=== PATIENT | male | born 1935 | race Caucasian/White ===

== ENCOUNTER 2017-10-04 16:31 | Inpatient (IN) | payer OTHER ==
[~2017-10-04] VITALS: Ht 152.4 cm; Wt 95.3 kg
[2017-10-04] VITALS (9 sets, daily range): BP systolic 127–150; BP diastolic 69–115
--- NOTE | 2017-10-04 16:35 | NUR ---
JOSSUE 7 FROM HOME FOR ACUTE RESPIRATORY DISTRESS, FEVER. A/OX 2, BREATHING LABORED, SHORT OF BREATH, ON 2ND BREATHING TREATMENT ON ROUTE. PATIENT WARM TO TOUCH, DIAPHORETIC. SAFETY AND COMFORT MEASURES IN PLACE. MD AT BEDSIDE FOR EVAL.
--- NOTE | 2017-10-04 16:40 | NUR ---
L AC G 18 IV STARTED BY RN, BLOOD TESTS DRAWN AND SEND TO LAB. SET OF BLOOD CULTURES ALSO DRAWN AND SEND TO LAB PRIOR TO INIATING ATB THERAPY.
[2017-10-04 16:51] LABS: BASOPHILS % (AUTO) 1.7 % (0.0-2.0); EOSINOPHILS # (AUTO) 0.1 /CMM (0.0-0.7); EOSINOPHILS % (AUTO) 2.7 % (0.0-6.0); HEMATOCRIT 41 % (39-51); HEMOGLOBIN 13.6 g/dL (13.5-17.5); LYMPHOCYTES # (AUTO) 0.5 /CMM (0.8-4.8); LYMPHOCYTES % (AUTO) 15.7 % (20.0-44.0); MEAN CORPUSCULAR HEMOGLOBIN 32 PG (26.0-33.0); MEAN CORPUSCULAR HGB CONC 33 g/dl (31.0-36.0); MEAN CORPUSCULAR VOLUME 96 fL (80-96); MONOCYTES % (AUTO) 0.3 % (2.0-12.0); NEUTROPHILS # (AUTO) 2.3 /CMM (1.8-8.9); NEUTROPHILS % (AUTO) 79.6 % (43.0-81.0); PLATELET COUNT (AUTO) 119 /CMM (150-450); RDW COEFFICIENT OF VARIATION 12.7 (11.5-15.0); RED BLOOD CELL COUNT(AUTO) 4.25 MIL/uL (4.5-6.0); WHITE BLOOD COUNT (AUTO) 2.9 K/uL (4.3-11.0)
[2017-10-04] MEDS ORDERED: ACETAMINOPHEN 650 MG/SUPP.RECT RC ONE ×2 (17:00→17:01)
--- NOTE | 2017-10-04 17:00 | NUR ---
BIPAP SETTINGS: 15/5-14-40%
[2017-10-04 17:05] LABS: CALCIUM, SERUM 8.9 mg/dL (8.5-10.1); CARBON DIOXIDE 26 mmol/L (21-32); CHLORIDE 104 mmol/L (98-107); CREATININE 1.7 mg/dL (0.6-1.3); GLUCOSE 93 mg/dL (74-106); POTASSIUM 4.1 mmol/L (3.5-5.1); SODIUM SERUM 138 mmol/L (136-145); UREA NITROGEN, BLOOD 24 mg/dL (7-18)
[2017-10-04 17:11] LABS: TROPONIN I < 0.017 ng/mL (0.00-0.056)
[2017-10-04] MEDS ORDERED: AMLO2.5T PO (17:12)
[2017-10-04] MEDS ORDERED: CARV25TA2 PO (17:12)
[2017-10-04] MEDS ORDERED: ATOR40TA PO (17:12)
[2017-10-04] MEDS ORDERED: ISOS60TA4 PO (17:12)
[2017-10-04] MEDS ORDERED: FLUT16SP16 NS (17:12)
[2017-10-04] MEDS ORDERED: ASPI-991 PO (17:12)
[2017-10-04] MEDS ORDERED: DOCU250C75 PO (17:12)
[2017-10-04] MEDS ORDERED: OMEG1CAP40 PO (17:12)
[2017-10-04] MEDS ORDERED: TAMS-12 PO (17:12)
[2017-10-04] MEDS ORDERED: RANI300C PO (17:12)
[2017-10-04] MEDS ORDERED: HYDR-4076 PO (17:12)
[2017-10-04] MEDS ORDERED: TERA1CAP4 PO ×2 (17:12)
[2017-10-04 17:13] LABS: INR 1.02 (0.87-1.13); PROTHROMBIN TIME 10.6 SECS (9.5-12.7)
[2017-10-04] MEDS ORDERED: LISI2.5T2 PO (17:13)
[2017-10-04 17:18] LABS: ALANINE AMINOTRANSFERASE 20 U/L (12-78); ALKALINE PHOSPHATASE 48 U/L (46-116); ASPARTATE AMINOTRANSFERASE 25 U/L (15-37); B-TYPE NATRIURETIC PEPTIDE 178 PG/ML (0-125); BILIRUBIN,DIRECT 0.2 mg/dL (0.0-0.2); BILIRUBIN,TOTAL 0.9 mg/dL (0.2-1.0); TOTAL PROTEIN, SERUM 7.2 g/dL (6.4-8.2)
[2017-10-04] MEDS ORDERED: IV NS 0.9% 1,000 ML IV ONE ×2 (17:30→18:30)
[2017-10-04] MEDS ORDERED: PIPERACILLIN /TAZOBACTAM 3.375 G in IV D5W 50 ML IV ONE (18:00)
[2017-10-04 18:05] LABS: BILIRUBIN,URINE SMALL (NEGATIVE); BLOOD, URINE Large Ery/uL (NEGATIVE); KETONES,URINE Negative (NEGATIVE); LEUKOCYTE ESTERASE ,URINE Negative (NEGATIVE); NITRITE, URINE Negative (NEGATIVE); PH,URINE 5.5 (5.0-8.0); PROTEIN,URINE 30 mg/dl (NEGATIVE); UGLUCOSE Negative (NEGATIVE); UROBILINOGEN,URINE 0.2 EU/dL (0.2)
[2017-10-04 18:10] LABS: APPEARANCE,URINE Slightly Cloudy (CLEAR); COLOR,URINE RED (YELLOW)
--- NOTE | 2017-10-04 18:24 | NUR ---
BED-ICU 256
[2017-10-04] MEDS ORDERED: VANCOMYCIN 1 GM in IV D5W 250 ML IV SCH (18:30)
[2017-10-04] MEDS ORDERED: MAG HYDROX/AL HYDROX/SIMETH 30 ML UDC PO PRN (18:30)
[2017-10-04] MEDS ORDERED: ZOLPIDEM TARTRATE 5 MG TABLET PO PRN (18:30)
[2017-10-04] MEDS ORDERED: MAGNESIUM HYDROXIDE 30 ML UDC PO PRN (18:30)
[2017-10-04] MEDS ORDERED: Z GUARD REMEDY 2 OZ OINT TP PRN (18:30)
[2017-10-04] MEDS ORDERED: HYDROCODONE/APAP 5/325MG 1 EACH TABLET PO PRN (18:30)
[2017-10-04 18:53] LABS: BACTERIA,URINE Moderate /HPF (None Seen); RBC,URINE 21-50 /HPF (0-2)
[2017-10-04 18:54] LABS: SQUAMOUS EPITHELIAL CELL,UR Few /HPF (None Seen)
--- NOTE | 2017-10-04 18:57 | NUR ---
REPORT GIVEN TO GIANNI MUNIZ FOR ADMISSION.
[2017-10-04] MEDS ORDERED: FEE PK DOSING 1 MIN EA MC ONE (19:14)
--- NOTE | 2017-10-04 19:15 | NUR ---
PATIENT TRANSPORTED TO ICU 256 VIA ACLS PROTOCOL. RNGIANNI TO PROVIDE HIRAM.
[2017-10-04] MEDS ORDERED: HYDROMORPHONE 1 MG/1 ML DISP.SYRIN IV PRN (19:30)
--- NOTE | 2017-10-04 19:30 | NUR ---
Received patient from ED via ACLS protocol per blanquita.Admitted for SEPSIS/PROSTATITIS. 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 SOB on exertion noted.Breath sounds clear on auscultation.HOB elevated.Initial admission assessment done.Patient made aware of plan of care.Verbalized understanding.Denies pain. Call light at BS within easy reach.
[2017-10-04] MEDS: IV NS 0.9% 1,000 ML IV PRN (19:42)
[2017-10-04] MEDS: ENOXAPARIN SODIUM 30 MG/0.3 ML DISP.SYRIN SQ SCH (20:18)
[2017-10-04] MEDS: VANCOMYCIN 1 GM in IV D5W 250 ML IV SCH (20:40)
[2017-10-04] MEDS ORDERED: PIPERACILLIN /TAZOBACTAM 4.5 G in IV D5W 50 ML IV SCH (21:00)
[2017-10-04] MEDS: ATORVASTATIN 40 MG TABLET PO SCH (22:03)
--- NOTE | 2017-10-04 22:30 | NUR ---
Specimen for Rapid Influenza antigen collected and given to Final Rail Cutter.
[2017-10-04] MEDS: ZOSYN IVPB 2.25 G in IV D5W 50ml IV SCH (23:30)
[2017-10-05] VITALS (25 sets, daily range): BP systolic 110–158; BP diastolic 52–78
--- NOTE | 2017-10-05 | NUR ---
Patient resting.VS stable.Denies pain.Turned and repositioned self in bed.
[2017-10-05] MEDS: HYDROCODONE/APAP 10/325MG 1 EA TABLET PO PRN ×2 (03:54→14:42)
--- NOTE | 2017-10-05 03:55 | NUR ---
Patient complaints of body ache.PRN pain medicine [place] administered.Will reassess pain status.
[2017-10-05] MEDS: ONDANSETRON HCL/PF 4 MG/2 ML VIAL IVP PRN (04:37)
--- NOTE | 2017-10-05 04:40 | NUR ---
Patient vomited small amount liquid emesis.Zofran administered as PRN.
[2017-10-05 04:51] LABS: EOSINOPHILS % (AUTO) 0.1 % (0.0-6.0); HEMATOCRIT 40 % (39-51); HEMOGLOBIN 13.6 g/dL (13.5-17.5); LYMPHOCYTES # (AUTO) 0.3 /CMM (0.8-4.8); LYMPHOCYTES % (AUTO) 2.4 % (20.0-44.0); MEAN CORPUSCULAR HEMOGLOBIN 33 PG (26.0-33.0); MEAN CORPUSCULAR HGB CONC 34 g/dl (31.0-36.0); MEAN CORPUSCULAR VOLUME 97 fL (80-96); MONOCYTES # (AUTO) 0.2 /CMM (0.1-1.30); MONOCYTES % (AUTO) 1.9 % (2.0-12.0); NEUTROPHILS # (AUTO) 10.2 /CMM (1.8-8.9); NEUTROPHILS % (AUTO) 95.6 % (43.0-81.0); PLATELET COUNT (AUTO) 88 /CMM (150-450); RDW COEFFICIENT OF VARIATION 13.2 (11.5-15.0); RED BLOOD CELL COUNT(AUTO) 4.15 MIL/uL (4.5-6.0); WHITE BLOOD COUNT (AUTO) 10.7 K/uL (4.3-11.0)
[2017-10-05 05:13] LABS: B-TYPE NATRIURETIC PEPTIDE 1835 PG/ML (0-125); CALCIUM, SERUM 8.1 mg/dL (8.5-10.1); CARBON DIOXIDE 23 mmol/L (21-32); CHLORIDE 107 mmol/L (98-107); CREATININE 1.7 mg/dL (0.6-1.3); GLUCOSE 92 mg/dL (74-106); MAGNESIUM 1.6 mg/dL (1.8-2.4); PHOSPHORUS 2.9 mg/dL (2.5-4.9); POTASSIUM 4.1 mmol/L (3.5-5.1); SODIUM SERUM 139 mmol/L (136-145); UREA NITROGEN, BLOOD 22 mg/dL (7-18)
[2017-10-05 05:21] LABS: CHOLESTEROL 64 mg/dL (<200); HDL CHOLESTEROL 32 mg/dL (40-60); LDL 27 mg/dL (0-99); THYROID STIMULATING HORMONE 1.357 uIU/mL (0.358-3.74); TRIGLYCERIDES 58 mg/dL (30-150)
[2017-10-05] MEDS: ZOSYN IVPB 2.25 G in IV D5W 50ml IV SCH (05:45)
[2017-10-05 06:04] LABS: BAND % (MANUAL) 31 % (0.0-5.0); LYMPHOCYTES % (MANUAL) 4 % (16-48); MONOCYTES % (MANUAL) 2 % (0-11.0); NEUTROPHILS % (MANUAL) 63 (42-76)
--- NOTE | 2017-10-05 06:40 | NUR ---
Patient resting.VS stable.T-max 99.8.Due antibiotics administered.Kept clean and dry.No further complaints of pain presented.Blood Culture 4 out of 4 sets positive with GNR Dr.Simona Khannotified.Made aware patient is already on Vancomycin and Zosyn.No new orders received.
--- NOTE | 2017-10-05 07:15 | NUR ---
CARTOON DESIGNER INITIAL NOTES: REC'D PT ASLEEP ON BED, NOT IN ANY DISTRESS, DENIES ANY PAIN/DISCOMFORT. PT IS A/O 3, ABLE TO MAKE NEEDS KNOWN. ON O2 AT 3LPM/NC, NO SOB, SATING AT 95%. PT IS WARM TO TOUCH, TEMP 99.6. ON TELEMONITOR, SR W/ 1' AVB W/ BBB. HAS 2 IV LINE ACCESS: L AC G18 AND L HAND G20, BOTH FLUSHING WELL, NO S/SX OF INFECTION/INFILTRATION NOTED. L HAND G20 HAS NX 75 CC/HR INFUSING WELL. PT ABLE TO URINATE USING URINAL. PT PROVIDED COMFORT & SAFETY MEASURES. BED KEPT LOW & IN LOCKED POS. CALL LIGHT PLACED W/IN REACH. WILL CONTINUE TO MONITOR/ASSESS PT'S NEEDS.
--- NOTE | 2017-10-05 07:31 | NUR ---
REPORT GIVEN TO JOSIE THAT PATIENT HOME MEDICATIONS WAS SENT TO PHARMACY.TO FOLLOW UP. 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
[2017-10-05] MEDS: DOCUSATE SODIUM 250 MG CAPSULE PO SCH (09:21)
[2017-10-05] MEDS: ASPIRIN EC 81 MG TABLET.DR PO SCH (09:21)
[2017-10-05] MEDS: PANTOPRAZOLE 40 MG VIAL IV SCH (09:21)
[2017-10-05] MEDS: TAMSULOSIN 0.4 MG CAP.SR.24H PO SCH ×2 (09:22→17:10)
[2017-10-05] MEDS: FLUTICASONE PROPIONATE 16 GM BOTTLE NS SCH (09:29)
[2017-10-05] MEDS ORDERED: Magnesium 1GM/D5W 100ML PREMIX 100 ML IV ONE (10:00)
--- NOTE | 2017-10-05 10:00 | NUR ---
RN NOTES: PT SEEN & EXAMINED BY HALIE HOOKS. MADE AWARE OF TEMP 100.2 W/ ORDERS NOTED & CARRIED OUT. MADE HIM AWARE OF + BLOOD CX RESULTS.
--- NOTE | 2017-10-05 11:31 | NUR ---
RN NOTES: PER DIETARY, PT VERBALIZED TO HER THAT HE IS HAVING DIFFICULTY SWALLOWING WATER. JESSEE FIRER KILN MADE AWARE, ORDERED SWALLOW EVAL. INSURANCE SALES MANAGER ALSO RECOMMENDED BOOST VANILLA TID D/T POOR APPETITE.
[2017-10-05] MEDS: IV NS 0.9% 1,000 ML IV PRN (12:20)
[2017-10-05] MEDS: MEROPENEM 500 MG in IV NS 0.9% 50 ML IV SCH ×2 (12:34→23:27)
--- NOTE | 2017-10-05 13:30 | NUR ---
RN NOTES: PT SEEN & EXAMINED BY DR. YIP. ORDERED TO DC CURRENT IVF NS X 75 CC/HR.
[2017-10-05] MEDS: BOOST PLUS FOOD-VANILLA 237 ML BOX PO SCH ×2 (13:35→17:10)
[2017-10-05] MEDS: ACETAMINOPHEN 325 MG TABLET PO PRN (15:29)
--- NOTE | 2017-10-05 16:20 | NUR ---
Spoke with dtr Allie [phone], patient lives alone in the [address]st floor [facility] apartment .He is ambulatory and independent with adl's. Daughter stated patient is very active and has good family support. Has no DME or homehealth reported. Patient pcp is Dr. Ryan Dickerson in [place] [phone]. Current plan is to return home, daughter will provide ride home when discharge. Addendum: 10/05/17 at 1622 by ROBYN DOMINGUEZ RN Amended: Links added.
[2017-10-05 16:25] LABS: ABG OXYGEN SATURATION 92.7 % (92.0-98.5); ABG PCO2 32.2 mmHg (35.0-45.0); ABG PH 7.422 (7.350-7.450); ABG PO2 62.9 mmHg (75.0-100.0); AaDO2 134.8 mmHg; COHb 0.3 % (0.5-1.5); O2Hb 91.5 % (94.0-97.0); SITE, ABG Right Radial; VENT MODE, BG nasal cannula
[2017-10-05] MEDS: LACTOBACILLUS RHAMNOSUS GG 1 EACH CAP.SPRINK PO SCH (17:10)
[2017-10-05] MEDS: ISOSORBIDE MONONITRATE (30MG) 30 MG TAB.SR.24H PO SCH (17:12)
[2017-10-05 18:44] LABS: APPEARANCE,URINE SL CLOUDY (CLEAR); BILIRUBIN,URINE NEGATIVE (NEGATIVE); BLOOD, URINE 3+ Ery/uL (NEGATIVE); COLOR,URINE DARK YELLO (YELLOW); CREATININE, URINE 198.9 MG/DL (30.0-125.0); KETONES,URINE NEGATIVE (NEGATIVE); LEUKOCYTE ESTERASE ,URINE NEGATIVE (NEGATIVE); NITRITE, URINE NEGATIVE (NEGATIVE); PROTEIN,URINE 1+ mg/dl (NEGATIVE); UGLUCOSE NEGATIVE (NEGATIVE); URINE TOTAL PROTEIN 94.3 mg/dL (0-11.9); UROBILINOGEN,URINE 0.2 EU/dL (0.2)
--- NOTE | 2017-10-05 19:00 | NUR ---
ON AIR DIRECTOR CLOSING NOTES: PT IS AFEBRILE AT THIS TIME. PT REMAINS A/O X3, ABLE TO MAKE NEEDS KNOWN. TOLERATED O2 AT 3LPM/NC, NO SOB. ON TELEMONITOR, STILL SR W/ 1' AVB W/ BBB. 2 IV LINE ACCESS: L AC G18 AND L HAND G20, SL, KEPT PATENT & INTACT W/ NO S/SX OF INFECTION/INFILTRATION NOTED. JESSEE, INSTRUCTOR CREELER MADE AWARE OF PROCALCITONIN LEVEL RESULT. MOE INSTRUCTOR CREELER MADE AWARE OF ID CONSULT AND UPDATED ABOUT PT CONDITION. BED KEPT LOW & IN LOCKED POS. CALL LIGHT PLACED W/IN REACH. ENDORSED TO PM RN FOR HIRAM.
--- NOTE | 2017-10-05 19:15 | NUR ---
Received patient A/O X 3.Siting in bed with family at bedside.Denies pain or SOB with O2 3L NC. 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
[2017-10-05 19:27] LABS: BACTERIA,URINE Moderate /HPF (None Seen); SQUAMOUS EPITHELIAL CELL,UR Few /HPF (None Seen)
--- NOTE | 2017-10-05 19:30 | NUR ---
Patient daughter Mary Beth left and took patient pio home.
[2017-10-05] MEDS: VANCOMYCIN 1 GM in IV D5W 250 ML IV SCH (20:00)
[2017-10-05 20:42] LABS: EOSINOPHIL,URINE None Seen
[2017-10-05] MEDS: ATORVASTATIN 40 MG TABLET PO SCH (21:35)
[2017-10-05] MEDS: CARVEDILOL 6.25 MG TABLET PO SCH (21:36)
[2017-10-05] MEDS: ENOXAPARIN SODIUM 30 MG/0.3 ML DISP.SYRIN SQ SCH (21:36)
[2017-10-06] VITALS (18 sets, daily range): BP systolic 108–145; BP diastolic 52–71
--- NOTE | 2017-10-06 | NUR ---
Patient resting.VS stable.Denies pain or any discomfort.Independently turn self in bed.
[2017-10-06 05:01] LABS: BASOPHILS % (AUTO) 0.1 % (0.0-2.0); EOSINOPHILS % (AUTO) 0.3 % (0.0-6.0); HEMATOCRIT 35 % (39-51); HEMOGLOBIN 12.1 g/dL (13.5-17.5); LYMPHOCYTES # (AUTO) 0.6 /CMM (0.8-4.8); LYMPHOCYTES % (AUTO) 7.5 % (20.0-44.0); MEAN CORPUSCULAR HEMOGLOBIN 34 PG (26.0-33.0); MEAN CORPUSCULAR HGB CONC 35 g/dl (31.0-36.0); MEAN CORPUSCULAR VOLUME 97 fL (80-96); MONOCYTES # (AUTO) 0.3 /CMM (0.1-1.30); MONOCYTES % (AUTO) 3.9 % (2.0-12.0); NEUTROPHILS # (AUTO) 7.5 /CMM (1.8-8.9); NEUTROPHILS % (AUTO) 88.2 % (43.0-81.0); PLATELET COUNT (AUTO) 68 /CMM (150-450); RDW COEFFICIENT OF VARIATION 13.4 (11.5-15.0); RED BLOOD CELL COUNT(AUTO) 3.62 MIL/uL (4.5-6.0); WHITE BLOOD COUNT (AUTO) 8.5 K/uL (4.3-11.0)
[2017-10-06 05:19] LABS: ALANINE AMINOTRANSFERASE 33 U/L (12-78); ALBUMIN 2.7 g/dL (3.4-5.0); ALKALINE PHOSPHATASE 43 U/L (46-116); ASPARTATE AMINOTRANSFERASE 46 U/L (15-37); CARBON DIOXIDE 25 mmol/L (21-32); CHLORIDE 104 mmol/L (98-107); CREATININE 1.6 mg/dL (0.6-1.3); GLUCOSE 107 mg/dL (74-106); PHOSPHORUS 1.9 mg/dL (2.5-4.9); POTASSIUM 3.6 mmol/L (3.5-5.1); SODIUM SERUM 135 mmol/L (136-145); TOTAL PROTEIN, SERUM 5.6 g/dL (6.4-8.2); UREA NITROGEN, BLOOD 29 mg/dL (7-18)
[2017-10-06 05:25] LABS: CREATINE KINASE, TOTAL 235 U/L (39-308)
[2017-10-06 05:32] LABS: APPEARANCE,URINE CLEAR (CLEAR); BILIRUBIN,URINE NEGATIVE (NEGATIVE); BLOOD, URINE 2+ Ery/uL (NEGATIVE); COLOR,URINE DARK YELLO (YELLOW); KETONES,URINE NEGATIVE (NEGATIVE); LEUKOCYTE ESTERASE ,URINE NEGATIVE (NEGATIVE); NITRITE, URINE NEGATIVE (NEGATIVE); PROTEIN,URINE 1+ mg/dl (NEGATIVE); UGLUCOSE NEGATIVE (NEGATIVE); UROBILINOGEN,URINE 0.2 EU/dL (0.2)
[2017-10-06 05:37] LABS: BAND % (MANUAL) 1 % (0.0-5.0); EOSINOPHILS % (MANUAL) 1 % (0-4); LYMPHOCYTES % (MANUAL) 9 % (16-48); MONOCYTES % (MANUAL) 5 % (0-11.0); NEUTROPHILS % (MANUAL) 84 (42-76)
[2017-10-06 05:52] LABS: BACTERIA,URINE None seen /HPF (None Seen); SQUAMOUS EPITHELIAL CELL,UR Few /HPF (None Seen); WBC,URINE 0-2 /HPF (0-3)
--- NOTE | 2017-10-06 06:00 | NUR ---
Patient resting.VS remains stable.Pain free.Still with sob on exertion.Tolerating O2 3L NC.Bathed and complete linens changed.All due medications administered.Adequate urine output.No BM noted. Needs met.
[2017-10-06 06:20] LABS: EOSINOPHIL,URINE None Seen
[2017-10-06] MEDS: ONDANSETRON HCL/PF 4 MG/2 ML VIAL IVP PRN ×2 (06:45→15:02)
--- NOTE | 2017-10-06 06:45 | NUR ---
Patient vomited x 1 small amount yellowish emesis.Zofran administered as PRN.Patient with urge to have BM.Assisted to bedpan.No BM noted.Will endorse to AM shift RN to follow up.
[2017-10-06 07:04] LABS: CREATININE, URINE 187.6 MG/DL (30.0-125.0); URINE TOTAL PROTEIN 86.6 mg/dL (0-11.9)
--- NOTE | 2017-10-06 08:00 | NUR ---
TOUR LEADER; ASSESSMENT RECEIVED PT AWAKE AND ORIENTED X4, PT DENIES ANY SOB OR CHEST PAIN. PT ABLE TO TRANSFER FROM BED TO CHAIR WITH MINIMAL ASSISTANCE. CALL LIGHT WITH IN REACH. NO ACUTE DISTRESS NOTED. WILL CONTINUE TO MONITOR CLOSELY.
[2017-10-06] MEDS: PANTOPRAZOLE 40 MG VIAL IV SCH (08:25)
[2017-10-06] MEDS: TAMSULOSIN 0.4 MG CAP.SR.24H PO SCH ×2 (08:26→18:09)
[2017-10-06] MEDS: ASPIRIN EC 81 MG TABLET.DR PO SCH (08:26)
[2017-10-06] MEDS: LACTOBACILLUS RHAMNOSUS GG 1 EACH CAP.SPRINK PO SCH ×2 (08:26→18:09)
[2017-10-06] MEDS: DOCUSATE SODIUM 250 MG CAPSULE PO SCH (08:26)
[2017-10-06] MEDS: ISOSORBIDE MONONITRATE (30MG) 30 MG TAB.SR.24H PO SCH ×2 (08:27→17:00)
[2017-10-06] MEDS: CARVEDILOL 6.25 MG TABLET PO SCH ×2 (08:27→21:45)
[2017-10-06] MEDS: BOOST PLUS FOOD-VANILLA 237 ML BOX PO SCH ×3 (08:29→18:09)
[2017-10-06] MEDS: FLUTICASONE PROPIONATE 16 GM BOTTLE NS SCH (08:30)
--- NOTE | 2017-10-06 10:30 | NUR ---
CROCHETER; TRANSFER TRANSFER TO [facility] VIA WHEELCHAIR WITH ACLS PROTOCOL. REPORT GIVEN TO AICHA MUNIZ FOR CONTINUITY OF CARE.
--- NOTE | 2017-10-06 10:40 | NUR ---
RECEIVED PT. ALERT AND ORIENTED.O2 APPLIED AT 2L.SIDE RAILS UP.VS TAKEN,HOOKED UP TO TELE,SR RATE OF 67.CALL DOWELL WITHIN REACH.PT. PLEASANT.SKIN WARM AND DRY.
[2017-10-06] MEDS: ACETAMINOPHEN 325 MG TABLET PO PRN (11:03)
--- NOTE | 2017-10-06 11:03 | NUR ---
MED. FOR HEADACHE WITH TYLENOL 650 MG PO.
[2017-10-06] MEDS: MEROPENEM 500 MG in IV NS 0.9% 50 ML IV SCH ×2 (12:13→23:15)
[2017-10-06] MEDS: HYDROCODONE/APAP 10/325MG 1 EA TABLET PO PRN (13:17)
[2017-10-06] MEDS: K PHOS NEUTRAL 250 MG TABLET PO ONE ×2 (14:00→18:09)
--- NOTE | 2017-10-06 15:02 | NUR ---
MED. WITH ZOFRAN FOR SEVERE NAUSEA.
--- NOTE | 2017-10-06 15:02 | NUR ---
RN NOTES ADMINISTERED ZOFRAN 4 MG/ML IV PUSH PER PATIENT REQUEST FOR NAUSEA, CONTINUED MONITORING. CALL LIGHT WITHIN TO REACH, NEEDS ATTENDED AND ANTICIPATED, SAFETY PRECAUTION MAINTAINED ALL THE TIME. FAMILY NEXT TO THE BED.
[2017-10-06] MEDS ORDERED: K PHOS NEUTRAL 250 MG TABLET PO ONE (18:30)
--- NOTE | 2017-10-06 18:30 | NUR ---
FAMILY IN TO VISIT-MED. WITH DANETTE WOO FOR LOW PHOSPHOROUS.
--- NOTE | 2017-10-06 20:10 | NUR ---
RN OPENING NOTES RECEIVED ENDORSEMENT FROM ARCHITECTURAL DRAFTSMANALIZE. FOUND Pt ASLEEP IN BED, WITH EQUAL CHEST RISE AND FALL. Pt IS A/OX3, AMHARIC SPEAKING. NO S/S OF ACUTE DISTRESS OR SOB NOTED. NO SIGNS OF PAIN OR DISCOMFORT NOTED AT THIS TIME. ON TELE. IV ACCESS ON LT HAND 18G, & LAC 20G, SL. SAFETY MEASURES IN PLACE. BED LOW, LOCKED, HOB ELEVATED, SIDE RAILS UP, CALL LIGHT AND BEDSIDE TABLE WITHIN REACH. WILL CONTINUE TO MONITOR Pt THROUGHOUT THE NIGHT FOR SAFETY.
[2017-10-06] MEDS: VANCOMYCIN 1 GM in IV D5W 250 ML IV SCH (21:44)
[2017-10-06] MEDS: ATORVASTATIN 40 MG TABLET PO SCH (21:45)
[2017-10-06] MEDS: ENOXAPARIN SODIUM 30 MG/0.3 ML DISP.SYRIN SQ SCH (21:47)
[2017-10-07] VITALS: BP 115/68
[2017-10-07 04:00] VITALS: BP 134/72
--- NOTE | 2017-10-07 06:37 | NUR ---
RN CLOSING NOTES NO SIGNIFICANT CHANGES IN Pt's CONDITION. Pt REMAINS STABLE AT THIS TIME. NO S/S OF ACUTE DISTRESS OR SOB NOTED DURING THE SHIFT. ALL NEEDS MET AND ATTENDED TO. SAFETY MEASURES IN PLACE. WILL ENDORSE TO DAYSHIFT RN FOR Pt's HIRAM. TELE READING SR 67
[2017-10-07 06:54] VITALS: BP 132/64
[2017-10-07 07:36] LABS: BASOPHILS % (AUTO) 0.1 % (0.0-2.0); EOSINOPHILS # (AUTO) 0.1 /CMM (0.0-0.7); EOSINOPHILS % (AUTO) 0.6 % (0.0-6.0); HEMATOCRIT 36 % (39-51); HEMOGLOBIN 12.2 g/dL (13.5-17.5); LYMPHOCYTES # (AUTO) 0.8 /CMM (0.8-4.8); LYMPHOCYTES % (AUTO) 10.6 % (20.0-44.0); MEAN CORPUSCULAR HEMOGLOBIN 33 PG (26.0-33.0); MEAN CORPUSCULAR HGB CONC 34 g/dl (31.0-36.0); MEAN CORPUSCULAR VOLUME 97 fL (80-96); MONOCYTES # (AUTO) 0.4 /CMM (0.1-1.30); MONOCYTES % (AUTO) 4.9 % (2.0-12.0); NEUTROPHILS # (AUTO) 6.7 /CMM (1.8-8.9); NEUTROPHILS % (AUTO) 83.8 % (43.0-81.0); PLATELET COUNT (AUTO) 78 /CMM (150-450); RDW COEFFICIENT OF VARIATION 13.6 (11.5-15.0); RED BLOOD CELL COUNT(AUTO) 3.68 MIL/uL (4.5-6.0); WHITE BLOOD COUNT (AUTO) 7.9 K/uL (4.3-11.0)
--- NOTE | 2017-10-07 07:47 | NUR ---
RUBBISH COLLECTOR: INITIAL NOTE RECEIVED PT A/0X3. AMHARIC SPEAKING BUT UNDERSTANDS NEPALESE. ON TELE MONITORING. SR AT 67 BPM. NO DISTRESS NOTED. NO SOB NOTED. NO CHEST PAIN NOTED. CONTINENT AND USES URINAL. BEDREST BUT IS AMBULATORY. SKIN INTACT. ON CARDIAC DIET. L HAND #18/ L AC #20 IV HL. SITE CLEAR AND PATENT. RESTING COMFORTABLY IN BED. CALL LIGHT WITHIN REACH.
[2017-10-07 07:58] LABS: CALCIUM, SERUM 7.9 mg/dL (8.5-10.1); CARBON DIOXIDE 23 mmol/L (21-32); CHLORIDE 105 mmol/L (98-107); CREATININE 1.3 mg/dL (0.6-1.3); GLUCOSE 97 mg/dL (74-106); PHOSPHORUS 2.3 mg/dL (2.5-4.9); POTASSIUM 3.7 mmol/L (3.5-5.1); SODIUM SERUM 137 mmol/L (136-145); UREA NITROGEN, BLOOD 23 mg/dL (7-18)
[2017-10-07] MEDS: DOCUSATE SODIUM 250 MG CAPSULE PO SCH (08:38)
[2017-10-07] MEDS: BOOST PLUS FOOD-VANILLA 237 ML BOX PO SCH ×3 (08:38→16:35)
[2017-10-07] MEDS: ASPIRIN EC 81 MG TABLET.DR PO SCH (08:38)
[2017-10-07] MEDS: FLUTICASONE PROPIONATE 16 GM BOTTLE NS SCH (08:38)
[2017-10-07] MEDS: TAMSULOSIN 0.4 MG CAP.SR.24H PO SCH ×2 (08:38→16:36)
[2017-10-07] MEDS: PANTOPRAZOLE 40 MG VIAL IV SCH (08:38)
[2017-10-07] MEDS: ISOSORBIDE MONONITRATE (30MG) 30 MG TAB.SR.24H PO SCH ×2 (08:39→16:36)
[2017-10-07] MEDS: CARVEDILOL 6.25 MG TABLET PO SCH ×2 (08:39→21:35)
[2017-10-07] MEDS: LACTOBACILLUS RHAMNOSUS GG 1 EACH CAP.SPRINK PO SCH ×2 (08:39→16:36)
[2017-10-07 09:21] LABS: BAND % (MANUAL) 14 % (0.0-5.0); LYMPHOCYTES % (MANUAL) 14 % (16-48); MONOCYTES % (MANUAL) 5 % (0-11.0); NEUTROPHILS % (MANUAL) 67 (42-76)
[2017-10-07] MEDS: ACETAMINOPHEN 325 MG TABLET PO PRN (10:07)
[2017-10-07] MEDS: MEROPENEM 500 MG in IV NS 0.9% 50 ML IV SCH (11:03)
--- NOTE | 2017-10-07 11:14 | NUR ---
L HAND IV LEAKING. D/C. SITE CLEAR. NO BLEEDING NOTED. DRESSING INTACT. L AC#20 PATENT SL.
[2017-10-07 12:00] VITALS: BP 127/72
[2017-10-07] MEDS ORDERED: K PHOS NEUTRAL 250 MG TABLET PO ONE (14:00)
[2017-10-07 16:00] VITALS: BP 138/71
--- NOTE | 2017-10-07 18:34 | NUR ---
IMAGERY ANALYST: CLOSING NOTE PT A/OX3. TOOK ALL MEDICATIONS ON TIME. NO ADVERSE REACTIONS NOTED. NO PAIN NOTED. NO SOB NOTED. ON 3L NC SATING AT 97%. NO CHEST PAIN NOTED. ADMINISTERED MOM AT 10AM FOR CONSTIPATION. PT PASSING GAS, BUT NO BOWL MOVEMENT YET. CONTINENT USES URINAL. AMBULATORY. SKIN INTACT. ON CARDIAC DIET. L AC# 20 SL, AND MENA MIDLINE #18. SITE CLEAR. DRESSING INTACT. NO BLEEDING NOTED. NO INFILTRATION NOTED. NO IV FLUIDS RUNNING. RESTING COMFORTABLY IN BED. CALL LIGHT WITHIN REACH.
--- NOTE | 2017-10-07 19:35 | NUR ---
RN OPENING NOTES RECEIVED REPORT FROM DAYSHIESE CAMEJO. FOUND Pt ASLEEP IN BED, WITH EQUAL CHEST RISE AND FALL. Pt IS A/OX3, COSTA RICAN SPEAKING. NO S/S OF ACUTE DISTRESS OR SOB NOTED. NO SIGNS OF PAIN OR DISCOMFORT NOTED AT THIS TIME. ON TELE. IV ACCESS ON LAC 20G, SL & MENA MIDLINE, SL. SAFETY MEASURES IN PLACE. BED LOW, LOCKED, HOB ELEVATED, SIDE RAILS UP, CALL LIGHT AND BEDSIDE TABLE WITHIN REACH. WILL CONTINUE TO MONITOR Pt THROUGHOUT THE NIGHT FOR SAFETY.
[2017-10-07 20:00] VITALS: BP 131/74
[2017-10-07] MEDS: VANCOMYCIN 1 GM in IV D5W 250 ML IV SCH (20:53)
[2017-10-07] MEDS: ATORVASTATIN 40 MG TABLET PO SCH (21:35)
[2017-10-07] MEDS: ENOXAPARIN SODIUM 30 MG/0.3 ML DISP.SYRIN SQ SCH (21:37)
[2017-10-07] MEDS ORDERED: CEFTRIAXONE 1 G VIAL ONE (23:46)
[2017-10-07] MEDS: CEFTRIAXONE 2 G in IV D5W 100 ML IV SCH (23:49)
[2017-10-08] VITALS: BP 151/69
[2017-10-08 04:00] VITALS: BP 136/73
--- NOTE | 2017-10-08 06:45 | NUR ---
RN CLOSING NOTES NO SIGNIFICANT CHANGES IN Pt's CONDITION. Pt REMAINS STABLE AT THIS TIME. NO S/S OF ACUTE DISTRESS OR SOB NOTED DURING SHIFT. ALL NEEDS MET AND ATTENDED TO. SAFETY MEASURES IN PLACE. WILL ENDORSE TO DAYSHIFT RN FOR Pt's HIRAM. TELE READING SR WITH 1ST DEGREE AV BLOCK & BBB's.
[2017-10-08 08:00] VITALS: BP 151/82
[2017-10-08] MEDS: BOOST PLUS FOOD-VANILLA 237 ML BOX PO SCH ×3 (08:00→16:29)
[2017-10-08 08:03] LABS: CALCIUM, SERUM 8.2 mg/dL (8.5-10.1); CARBON DIOXIDE 26 mmol/L (21-32); CHLORIDE 105 mmol/L (98-107); CREATININE 1.2 mg/dL (0.6-1.3); GLUCOSE 94 mg/dL (74-106); PHOSPHORUS 2.6 mg/dL (2.5-4.9); POTASSIUM 3.6 mmol/L (3.5-5.1); SODIUM SERUM 139 mmol/L (136-145); UREA NITROGEN, BLOOD 20 mg/dL (7-18)
[2017-10-08 08:09] LABS: BASOPHILS % (AUTO) 0.1 % (0.0-2.0); EOSINOPHILS # (AUTO) 0.1 /CMM (0.0-0.7); EOSINOPHILS % (AUTO) 2.1 % (0.0-6.0); HEMATOCRIT 36 % (39-51); HEMOGLOBIN 12.2 g/dL (13.5-17.5); LYMPHOCYTES % (AUTO) 15.9 % (20.0-44.0); MEAN CORPUSCULAR HEMOGLOBIN 33 PG (26.0-33.0); MEAN CORPUSCULAR HGB CONC 34 g/dl (31.0-36.0); MEAN CORPUSCULAR VOLUME 97 fL (80-96); MONOCYTES # (AUTO) 0.5 /CMM (0.1-1.30); NEUTROPHILS # (AUTO) 4.7 /CMM (1.8-8.9); NEUTROPHILS % (AUTO) 73.9 % (43.0-81.0); PLATELET COUNT (AUTO) 97 /CMM (150-450); RDW COEFFICIENT OF VARIATION 13.8 (11.5-15.0); RED BLOOD CELL COUNT(AUTO) 3.76 MIL/uL (4.5-6.0); WHITE BLOOD COUNT (AUTO) 6.4 K/uL (4.3-11.0)
[2017-10-08] MEDS: PANTOPRAZOLE 40 MG VIAL IV SCH (08:15)
[2017-10-08] MEDS: FLUTICASONE PROPIONATE 16 GM BOTTLE NS SCH (08:15)
[2017-10-08] MEDS: DOCUSATE SODIUM 250 MG CAPSULE PO SCH (08:16)
[2017-10-08] MEDS: ASPIRIN EC 81 MG TABLET.DR PO SCH (08:16)
[2017-10-08] MEDS: CARVEDILOL 6.25 MG TABLET PO SCH ×2 (08:16→23:19)
[2017-10-08] MEDS: LACTOBACILLUS RHAMNOSUS GG 1 EACH CAP.SPRINK PO SCH ×2 (08:17→16:29)
[2017-10-08] MEDS: TAMSULOSIN 0.4 MG CAP.SR.24H PO SCH ×2 (08:17→16:29)
[2017-10-08] MEDS: ISOSORBIDE MONONITRATE (30MG) 30 MG TAB.SR.24H PO SCH ×2 (08:18→16:31)
--- NOTE | 2017-10-08 09:00 | NUR ---
MS RN OPENING NOTES PT A&0X3 SITTING ON EDGE OF BED WITH TABLE, BED IN LOWEST LOCKED POSITION WITH HANDRAILSX3 AND CALLBELL WITHIN REACH. PT TOLERATING ROOM AIR WITH NO SOB, LUNG QUIROZ AUSCULTATED CLEAR THROUGHOUT. PT REPORTS FLATUS AND BOWEL SOUNDS AUSCULTATED IN ALL 4 QUADS BUT PT REPORTS NO BOWEL MOVEMENT FOR 3-4 DAYS. PT IS WITH L UPPER ARM MIDLINE G#18 AND L AC G#20 BOTH FLUSHED PATENT AND SALINE LOCKED. PT BRIEFED ON TODAY'S POC AND IS WITHOUT CONCERN OR COMPLAINT AT THIS TIME.
[2017-10-08 10:29] VITALS: BP 151/82
[2017-10-08 11:39] LABS: BAND % (MANUAL) 6 % (0.0-5.0); LYMPHOCYTES % (MANUAL) 4 % (16-48); MONOCYTES % (MANUAL) 5 % (0-11.0); NEUTROPHILS % (MANUAL) 85 (42-76)
[2017-10-08 16:00] VITALS: BP 139/78
--- NOTE | 2017-10-08 19:19 | NUR ---
MS RN CLOSING NOTES PT A&0X3 RESTING IN LOW SEMI FOWLERS, BED IN LOWEST LOCKED POSITION WITH HANDRAILSX3 AND CALL DOWELL WITHIN REACH. PT TOLERATING ROOM AIR WITH NO SOB, LUNG QUIROZ AUSCULTATED CLEAR THROUGHOUT. PT IS WITH L UPPER ARM MIDLINE G#18 AND L AC G#20 BOTH FLUSHED PATENT AND SALINE LOCKED. ALL DAY SHIFT DUTIES ATTENDED TO, PT IS WITHOUT CONCERN OR COMPLAINT AT THIS TIME. WILL ENDORSE TO NIGHT NURSE.
--- NOTE | 2017-10-08 19:40 | NUR ---
RN OPENING NOTES RECEIVED REPORT FROM DAYSARFT RN FELICE. FOUND Pt ASLEEP IN BED, WITH EQUAL CHEST RISE AND FALL. Pt IS A/OX3, COSTA RICAN SPEAKING. NO S/S OF ACUTE DISTRESS OR SOB NOTED. NO SIGNS OF PAIN OR DISCOMFORT NOTED AT THIS TIME. IV ACCESS ON LAC 20G, SL & MENA MIDLINE, SL. SAFETY MEASURES IN PLACE. BED LOW, LOCKED, HOB ELEVATED, SIDE RAILS UP, CALL LIGHT AND BEDSIDE TABLE WITHIN REACH. WILL CONTINUE TO MONITOR Pt THROUGHOUT THE NIGHT FOR SAFETY.
[2017-10-08 20:00] VITALS: BP 149/77
[2017-10-08] MEDS: ENOXAPARIN SODIUM 30 MG/0.3 ML DISP.SYRIN SQ SCH (21:00)
[2017-10-08] MEDS: ATORVASTATIN 40 MG TABLET PO SCH (23:16)
[2017-10-08] MEDS: CEFTRIAXONE 2 G in IV D5W 100 ML IV SCH (23:16)
[2017-10-09 04:07] LABS: *SPE A/G RATIO 1.3 (0.7-1.7); *SPE ALPHA-1-GLOBULIN 0.3 g/dL (0.0-0.4); *SPE ALPHA-2-GLOBULIN 0.6 g/dL (0.4-1.0); *SPE BETA GLOBULIN 0.6 g/dL (0.7-1.3); *SPE GLOBULIN, TOTAL 2.3 g/dL (2.2-3.9); *SPE M-SPIKE Not Observed g/dL (Not Observed); *SPEGAMMA GLOBULIN 0.7 g/dL (0.4-1.8)
--- NOTE | 2017-10-09 06:25 | NUR ---
RN CLOSING NOTES NO SIGNIFICANT CHANGES IN Pt's CONDITION. Pt REMAINS STABLE AT THIS TIME. NO S/S OF ACUTE DISTRESS OR SOB NOTED DURING THE SHIFT. ALL NEEDS MET AND ATTENDED TO. SAFETY MEASURES IN PLACE. DC IN THE AM. WILL ENDORSE TO DAYSHIFT RN FOR Pt's HIRAM.
--- NOTE | 2017-10-09 07:30 | NUR ---
RN OPENING NOTES RECEIVED PATIENT IN BED RESTING. NO ACUTE DISTRESS, NO SOB NOTED. DENIES PAIN OR DISCOMFORT. IV SITE INTACT AND PATENT. KEPT PATIENT SAFE AND COMFORTABLE. BED IN LOCKED, LOW POSITION, SIDERAILS UPX2. CALL LIGHT IN REACH. WILL CONTINUE TO MONITOR ACCORDINGLY.
[2017-10-09 07:56] LABS: BASOPHILS % (AUTO) 0.1 % (0.0-2.0); EOSINOPHILS # (AUTO) 0.3 /CMM (0.0-0.7); EOSINOPHILS % (AUTO) 4.3 % (0.0-6.0); HEMATOCRIT 38 % (39-51); LYMPHOCYTES # (AUTO) 1.1 /CMM (0.8-4.8); LYMPHOCYTES % (AUTO) 19.5 % (20.0-44.0); MEAN CORPUSCULAR HEMOGLOBIN 33 PG (26.0-33.0); MEAN CORPUSCULAR HGB CONC 34 g/dl (31.0-36.0); MEAN CORPUSCULAR VOLUME 95 fL (80-96); MONOCYTES # (AUTO) 0.5 /CMM (0.1-1.30); MONOCYTES % (AUTO) 8.1 % (2.0-12.0); PLATELET COUNT (AUTO) 122 /CMM (150-450); RDW COEFFICIENT OF VARIATION 13.2 (11.5-15.0); WHITE BLOOD COUNT (AUTO) 5.9 K/uL (4.3-11.0)
[2017-10-09 08:00] VITALS: BP_SYST 146; BP_SYST 189; BP_DIAS 70; BP_DIAS 87
[2017-10-09 08:10] LABS: CALCIUM, SERUM 8.6 mg/dL (8.5-10.1); CARBON DIOXIDE 25 mmol/L (21-32); CHLORIDE 103 mmol/L (98-107); CREATININE 1.3 mg/dL (0.6-1.3); GLUCOSE 98 mg/dL (74-106); PHOSPHORUS 2.6 mg/dL (2.5-4.9); POTASSIUM 3.6 mmol/L (3.5-5.1); SODIUM SERUM 136 mmol/L (136-145); UREA NITROGEN, BLOOD 23 mg/dL (7-18)
[2017-10-09] MEDS: TAMSULOSIN 0.4 MG CAP.SR.24H PO SCH (08:35)
[2017-10-09] MEDS: ASPIRIN EC 81 MG TABLET.DR PO SCH (08:35)
[2017-10-09] MEDS: BOOST PLUS FOOD-VANILLA 237 ML BOX PO SCH ×2 (08:35→12:00)
[2017-10-09] MEDS: DOCUSATE SODIUM 250 MG CAPSULE PO SCH (08:36)
[2017-10-09] MEDS: PANTOPRAZOLE 40 MG VIAL IV SCH (08:36)
[2017-10-09] MEDS: ISOSORBIDE MONONITRATE (30MG) 30 MG TAB.SR.24H PO SCH (08:37)
[2017-10-09] MEDS: LACTOBACILLUS RHAMNOSUS GG 1 EACH CAP.SPRINK PO SCH (08:38)
[2017-10-09] MEDS: CARVEDILOL 6.25 MG TABLET PO SCH (08:38)
[2017-10-09] MEDS: FLUTICASONE PROPIONATE 16 GM BOTTLE NS SCH (08:46)
[2017-10-09] MEDS ORDERED: LISINOPRIL (5MG) 5 MG TABLET PO SCH (09:00)
[2017-10-09 12:16] LABS: PTH, INTACT 34 pg/mL (15-65)
[2017-10-09 15:00] VITALS: BP_SYST 134; BP_SYST 146; BP_DIAS 70; BP_DIAS 71
--- NOTE | 2017-10-09 15:00 | NUR ---
RN NOTES PER JESSEE HOWARD NP, OK TO DISCHARGE PATIENT WITH MIDLINE FOR HOME HEALTH ANTIBIOTIC USE.
--- NOTE | 2017-10-09 15:10 | NUR ---
M/S RN: DISCHARGED DISCHARGED HOME IN STABLE CONDITION WITH ALL D'C PAPERS, BELONGINGS, AND VALUABLES VIA PRIVATE CAR ACCOMPANIED BY .
== END 2017-10-09 15:33 | disposition home health service (06) | DRG 871 ==
LOC: ER 16:32 → ICU 18:43 → TELE 10-06 10:26 → MED 10-08 09:30
DX: A41.51 Sepsis due to Escherichia coli [E. coli] (principal); N17.0 Acute kidney failure with tubular necrosis; J96.00 Acute respiratory failure, unspecified whether with hypoxia or hypercapnia; I50.23 Acute on chronic systolic (congestive) heart failure; E44.0 Moderate protein-calorie malnutrition; D69.6 Thrombocytopenia, unspecified; J15.9 Unspecified bacterial pneumonia; E87.2 Acidosis; E66.01 Morbid (severe) obesity due to excess calories; I13.0 Hypertensive heart and chronic kidney disease with heart failure and stage 1 through stage 4 chronic kidney disease, or unspecified chronic kidney disease; N39.0 Urinary tract infection, site not specified; Z68.41 Body mass index [BMI] 40.0-44.9, adult; I11.0 Hypertensive heart disease with heart failure; N41.9 Inflammatory disease of prostate, unspecified; Z79.82 Long term (current) use of aspirin; Z79.899 Other long term (current) drug therapy; N18.9 Chronic kidney disease, unspecified; N40.0 Benign prostatic hyperplasia without lower urinary tract symptoms; E83.42 Hypomagnesemia; E78.5 Hyperlipidemia, unspecified; I25.5 Ischemic cardiomyopathy; I70.0 Atherosclerosis of aorta; G47.33 Obstructive sleep apnea (adult) (pediatric); B96.89 Other specified bacterial agents as the cause of diseases classified elsewhere; E83.39 Other disorders of phosphorus metabolism; T46.4X5A Adverse effect of angiotensin-converting-enzyme inhibitors, initial encounter; Y92.009 Unspecified place in unspecified non-institutional (private) residence as the place of occurrence of the external cause; D53.9 Nutritional anemia, unspecified; K21.9 Gastro-esophageal reflux disease without esophagitis; Z87.891 Personal history of nicotine dependence
CPT/HCPCS: 36415; 36600; 71010-TC; 80048-TC; 80053-TC; 80061-TC; 80076-TC; 80202-TC; 81000-TC; 82550-TC; 82570-TC; 82803-TC; 83605-TC; 83735-TC; 83880; 83970; 84100-TC; 84155; 84155-TC; 84165; 84300-TC; 84443-TC; 84484-TC; 85025-TC; 85730-TC; 87040-TC; 87081-TC; 87086-TC; 87186-TC; 87400; 92611-TC; 93307-TC; A4216; A4606; C9113; J0696; J1650; J2185; J2405; J2543; J3370; J3475; J7030; J7040; J7050; J7060; Z7610

== ENCOUNTER 2017-10-15 12:21 | Outpatient (CLI) | payer OTHER ==
[~2017-10-15 12:21] MED LIST: AMLO2.5T PO; ASPI-1152 PO; ATOR40TA PO; CARV25TA2 PO; DOCU250C14 PO; FLUT16SP16 NS; HYDR-4076 PO; ISOS60TA4 PO; LISI2.5T2 PO; OMEG1CAP40 PO; RANI300C PO; TAMS-12 PO; TERA1CAP4 PO
[2017-10-15 12:29] VITALS: BP 115/65
== END 2017-10-15 23:59 | disposition home or self-care (01) ==
LOC: MSC 12:21
PROVIDERS: ATTEND Internal Medicine
DX: A41.50 Gram-negative sepsis, unspecified (principal); R65.20 Severe sepsis without septic shock; N39.0 Urinary tract infection, site not specified; I13.0 Hypertensive heart and chronic kidney disease with heart failure and stage 1 through stage 4 chronic kidney disease, or unspecified chronic kidney disease; N18.9 Chronic kidney disease, unspecified; N17.9 Acute kidney failure, unspecified; I50.9 Heart failure, unspecified; E78.5 Hyperlipidemia, unspecified; K21.9 Gastro-esophageal reflux disease without esophagitis; N40.0 Benign prostatic hyperplasia without lower urinary tract symptoms; E66.01 Morbid (severe) obesity due to excess calories; Z79.899 Other long term (current) drug therapy; E46 Unspecified protein-calorie malnutrition; Z68.41 Body mass index [BMI] 40.0-44.9, adult